=== PATIENT | female | born 1980 | race Caucasian/White ===

== ENCOUNTER 2021-08-15 16:30 | Outpatient (RCR) | payer OTHER, SELFPAY ==
--- NOTE | 2021-08-06 13:30 | HP.OTEVAL ---
Patient's Visit Information ANDRES CALVO is a 41 year old F, referred to Occupational Therapy by SUSANA Higgins, with a diagnosis of right IF contusion/ crush injury. Date of Evaluation: 08/06/21 Occupational Therapist: Vivien Griffith, OTR/Ravi, CHT - Subjective This 41 year old female was seen for OT eval with dx right IF crush injury- pt states DOI was Jul.04-. [place] - crush - pt arrived at urgent care- pt states she has a constant tingling sensation- and notices her IF get colder faster -. Pt is currently working on light duty. pt works in [employer]. pt states finger feels different when cutting with a knife. 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 with work and ADLs tasks by d.c Goal:: pt will demo left IF flexion equal to unaffected hand demo return of PLOF by d/c. pt will demo full composite fist to increase ind. with small objects by d/c Goal:: pt will demo understanding of nerve healing by end of 2nd session-. pt will demo understanding of sensory stimulation/ re-ed textures by end of 3rd visit to increase kimberley of tingling sensation while using right UE for work and ADls tasks. 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 pt would benefit from skilled OT services 2x week for 4 weeks. therapy will ed. pt on sensory re-ed/ sensory stimulation/ strengthening and ed. pt on dx and healing of nerves following a crush injury. Pt demo understanding and agree to POC. Rehabilitation Potential: Good - Anticipated Interventions Strengthening, Desensitization, Sensory Retraining, Fine Motor Coord/Crow, Sensory Stimulation, Education re Diagnosis, Home Program - Visit Plan Frequency: 2-3x /Week Duration: 4 Weeks TEXT: Thank you for the opportunity to evaluate your patient. For Medicare and Medicare HMO plans, please review the plan of care and approve it. It will need to be FAXED BACK to us at [phone] for Medicare purposes. Please let me know if there are questions or concerns regarding this plan of care. Physician Signature: Date:
--- NOTE | 2021-08-13 17:25 | HP.OTREVAL ---
SUSANA Higgins, It has been my pleasure to treat ANDRES CALVO over the last 2 visits for right IF contusion/ crush injury. Please see the progress note below for an update on the occupational therapy plan of care! Subjective: pt states very small section on ulnar tip of IF still pins and needles when you touch it- pt is happy with her progress. pt states her finger stops her about 5% of the time- waiting on full release for full return to work. Objective/Function: pt demo with ulnar side of tip of IF- in about .5cm area-. pt demo understanding of use without compensation. 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 right lateral pinch 19# increased from 10#. right tripod pinch 16# increased form 8#. right IF MCP 80*. right IF PIP 100*. right IF DIP 65 increase from 60*. pt is performing sensory re-ed HEP and is visually compensating when using knife or hot/sharp objects . 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 with work and ADLs tasks by d.c Goal:: pt will demo left IF flexion equal to unaffected hand demo return of PLOF by d/c. pt will demo full composite fist to increase ind. with small objects by d/c Goal:: pt will demo understanding of nerve healing by end of 2nd session-. pt will demo understanding of sensory stimulation/ re-ed textures by end of 3rd visit to increase kimberley of tingling sensation while using right UE for work and ADls tasks. Anticipated Interventions Anticipated Interventions: Strengthening, Desensitization, Sensory Retraining, Fine Motor Coord/Crow, Sensory Stimulation, Education re Diagnosis, Home Program Please do not hesitate to contact me at [phone] by phone or if you have questions or concerns regarding this new plan of care! Sincerely, Vivien Griffith, OTR/L, CHT
--- NOTE | 2021-08-15 16:35 | HP.OTDCSUM_ITS ---
It has been my pleasure to treat ANDRES CALVO under orders from SUSANA Higgins, for the diagnosis of right IF contusion/ crush injury for a total of 3 visit(s). Please see the following information for a summary of their discharge status. % Improvement: 95 Objective/Function: pt demo with ulnar side of tip of IF- in about .5cm area-. pt demo understanding of use without compensation. 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 right lateral pinch 19# increased from 10#. right tripod pinch 16# increased form 8#. right IF MCP 80*. right IF PIP 100*. right IF DIP 65 increase from 60*. pt is performing sensory re-ed HEP and is visually compensating when using knife or hot/sharp objects . therapist encouraged normal use of right hand with all ADls and IADLs - Therapist ed. pt on speed of nerve recovery and that sensation can take up to 12- 14 months to completely return. Pt demo understanding and agrees to cont, with HEP for sensory re-ed. 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 with work and ADLs tasks by d.c Goal:: pt will demo left IF flexion equal to unaffected hand demo return of PLOF by d/c. pt will demo full composite fist to increase ind. with small objects by d/c Goal:: pt will demo understanding of nerve healing by end of 2nd session-. pt will demo understanding of sensory stimulation/ re-ed textures by end of 3rd visit to increase kimberley of tingling sensation while using right UE for work and ADls tasks. Plan: D/C with HEP Discharge Comments: Pt did well in short period of time-and has had sensation return to her tip of IF. Pt compliant with her HEP and pt agree to continue performing her sensory re-ed. as nerve can take up to 12-14 months. pt agrees with POC and is d/c at this time. If there are questions or concerns regarding this patient's occupational therapy, please fell free to call me at [phone]. Thank you for the referral of this patient. Sincerely, Vivien Griffith, OTR/L, CHT
== END 2021-08-15 19:00 | disposition home or self-care (01) ==
LOC: OT 16:30
PROVIDERS: Referring Provider Physician Assistant; Visit Provider Physician Assistant
DX: S60.021D Contusion of right index finger without damage to nail, subsequent encounter (principal); X58.XXXD Exposure to other specified factors, subsequent encounter
CPT/HCPCS: 97166; 97530